=== PATIENT | female | born 1930 | race Caucasian/White ===

== ENCOUNTER 2016-07-07 20:08 | Inpatient (IN) | payer OTHER, BC ==
[~2016-07-07] VITALS: Ht 152.4 cm; Wt 52.8 kg
[~2016-07-07 20:08] MED LIST: ALLEGRA ALLERG180 MG PO; ATENOLOL50 MG PO; BIOTIN 5000MCG PO; CALAN SR,COVER240 MG PO; CALCIUM + VITA1 EAC1 PO; CALCIUM-VITAMI1 EAC1 PO; CARVEDILOL12.5 MG PO; CARVEDILOL6.25 MG PO; CATAPRES0.1 MG PO; CLARITIN,ALAVAR10 MG PO; COLACE100 MG PO; COUMADIN,JANTOVE4 MG PO; COUMADIN,JANTOVE6 MG PO; COUMADIN2 MG PO; COZAAR100 MG PO; Colace PO; Coreg PO; Cozaar PO; ERYTHROMYC1 APPLICAT RIGHT EYE; Ecotrin PO; FLONASE16 G1 BOTH NARES; KEFLEX500 MG PO; LOSARTAN POTASS50 MG PO; LOW DOSE ASPIRI81 M1 PO; MILK OF MAGNES311 MG PO; MIRALAX17 GM PO; Oscal 500 w/Vitamin PO; PREDNISONE20 MG PO; VERAPAMIL ER240 M1 PO; WARFARIN SODIUM2 MG PO; ZYRTEC10 M2 PO
[2016-07-07 21:15] LABS: HEMATOCRIT 34.3 % (36.0-46.0); MCHC 33.5 G/DL (30.0-36.0); MCV 86.6 FL (83-99); RBC DIS.WIDTH-CV 13.6 % (11.8-14.6); RED BLOOD COUNT 3.96 M/uL (3.80-5.20); WHITE BLOOD COUNT 7.1 K/uL (4.1-10.2)
[2016-07-07 21:24] LABS: CHLORIDE 103 mEq/L (99-109); POTASSIUM 4.1 mEq/L (3.7-5.4); SODIUM 136 mEq/L (136-147)
[2016-07-07 21:26] LABS: GLUCOSE 95 mg/dL (70-99)
[2016-07-07 21:28] LABS: ANION GAP 10 MEQ/L (2-14)
[2016-07-07 21:30] LABS: GFR ESTIMATE (CALCULATED) > 59 mL/min/
[2016-07-07 21:31] LABS: UREA NITROGEN (BUN) 15 mg/dL (9-23)
[2016-07-07 21:32] LABS: CREATINE KINASE 19 IU/L (1-294); TOTAL CK 19 IU/L (1-294)
[2016-07-07 21:36] LABS: TROP-I INTERPRETATION NEGATIVE; TROPONIN-I < 0.01 ng/mL (0.0-0.30)
[2016-07-07 21:44] LABS: CK-MB 1.1 ng/mL (0.0-4.9)
[2016-07-07 21:57] LABS: HEMATOLOGY COMMENT 1 SN; MEAN PLAT.VOLUME 10.4 uM^3 (9.5-12.4); PLAT.SUFFICIENCY ADEQUATE; PLATELET COUNT 339 K/uL (156-360)
[2016-07-07 22:56] LABS: ADD MIUA? NO; BILIRUBIN NEGATIVE; BLOOD NEGATIVE; COLOR STRAW ((YELLOW)); GLUCOSE (STRIP) NEGATIVE; KETONES NEGATIVE; LEUKOCYTES NEGATIVE; NITRITE NEGATIVE; PROTEIN (STRIP) NEGATIVE; SPECIFIC GRAVITY 1.009 (1.000-1.030); UCUL ADDED? NO; UROBILINOGEN 0.2 MG/DL (0.2-1.0)
[2016-07-08] MEDS ORDERED: COREG6.25 M1 PO (01:05)
[2016-07-08] MEDS ORDERED: MIRALAX255 GM PO (01:06)
[2016-07-08] MEDS ORDERED: VITAMIN D31000 UNIT PO (01:06)
[2016-07-08 01:24] LABS: PROTHROMBIN TIME 20.7 (9.2-11.2)
[2016-07-08 01:56] VITALS: BP 178/79
[2016-07-08 03:31] VITALS: BP 140/63
[2016-07-08 06:17] LABS: HEMATOCRIT 30.5 % (36.0-46.0); MCH 28.5 PG (29.0-34.0); MCHC 32.5 G/DL (30.0-36.0); MCV 87.9 FL (83-99); MEAN PLAT.VOLUME 10.7 uM^3 (9.5-12.4); PLATELET COUNT 253 K/uL (156-360); RBC DIS.WIDTH-CV 13.8 % (11.8-14.6); RBC DIS.WIDTH-SD 44.2 % (39-53); RED BLOOD COUNT 3.47 M/uL (3.80-5.20); WHITE BLOOD COUNT 5.8 K/uL (4.1-10.2)
[2016-07-08 06:41] LABS: ALKALINE PHOSPHATASE 57 IU/L (3-129); ANION GAP 6 MEQ/L (2-14); CHLORIDE 106 MEQ/L (99-109); GFR ESTIMATE (CALCULATED) > 59 mL/min/; GLUCOSE 90 mg/dL (70-99); POTASSIUM 3.9 MEQ/L (3.7-5.4); SAMPLE HEMOLYSIS CHECK 0; SAMPLE ICTERIC CHECK 0; SAMPLE LIPEMIA CHECK 0; SODIUM 136 MEQ/L (136-147); TOTAL BILIRUBIN 0.3 MG/DL (0.0-1.0); UREA NITROGEN (BUN) 12 mg/dL (9-23)
[2016-07-08 07:08] VITALS: BP 166/61
[2016-07-08 10:48] VITALS: BP 121/58
[2016-07-08] MEDS ORDERED: ASPIR-LOW81 MG PO (13:03)
[2016-07-08 13:40] LABS: HDL CHOLESTEROL 21 MG/DL (Desirable>=50); LDL CHOLESTEROL 85 mg/dL (Desirable<100); NON-HDL CHOLESTEROL 102 mg/dL (Desirable<160); TOTAL CHOLESTEROL 123 mg/dL (Desirable<200); TRIGLYCERIDES 87 MG/DL (Normal: <150)
[2016-07-08 14:22] LABS: Estimated Average Glucose 123 mg/dL (70-123); HEMOGLOBIN A1c (GLYCOHEMOGLOB) 5.9 % HGB (Below 5.7)
[2016-07-08 19:14] VITALS: BP 173/73
[2016-07-09 00:25] VITALS: BP 140/61
[2016-07-09 03:52] VITALS: BP 133/70
[2016-07-09 06:38] LABS: INTER. NORMALIZED RATIO 2.3; PROTHROMBIN TIME 23.6 (9.2-11.2)
[2016-07-09 07:14] VITALS: BP 126/61
== END 2016-07-09 12:50 | disposition home health service (06) | DRG 66 ==
LOC: EME 20:08 → EDOF 07-08 00:05 → 5WEST 07-08 00:05 → EDOF 07-08 00:05 → 5WEST 07-08 01:41
PROVIDERS: Emergency Medicine; Hospitalist; Internal Medicine
DX: I63.9 Cerebral infarction, unspecified (principal); I16.0 Hypertensive urgency; I25.10 Atherosclerotic heart disease of native coronary artery without angina pectoris; E78.5 Hyperlipidemia, unspecified; E86.0 Dehydration; R41.0 Disorientation, unspecified; Z86.711 Personal history of pulmonary embolism; Z79.01 Long term (current) use of anticoagulants
CPT/HCPCS: 70450; 70551; 71020; 80048; 80053; 80061; 81003; 82550; 82553; 83036; 84443; 84484; 85027; 85610; 87086; 93005; 93306; 93880; 99281; 99285; G0378; G8978 GP CJ; G8979 GP CI; G8987 GO CI; G8987 GO CM; J7030

== ENCOUNTER 2016-09-02 11:15 | Inpatient (IN) | payer OTHER, BC ==
[~2016-09-02] VITALS: Ht 165.1 cm; Wt 55.5 kg
[2016-09-02] VITALS (7 sets, daily range): BP systolic 113–132; BP diastolic 55–60
[~2016-09-02 11:15] MED LIST changes: +ASPIR-LOW81 MG PO; +COREG6.25 M1 PO; +MIRALAX255 GM PO; +VITAMIN D31000 UNIT PO
[2016-09-02 12:00] LABS: EOSINOPHIL (%) 0.1 % (0-5); HEMATOCRIT 33.6 % (36.0-46.0); IMMATURE GRANULOCYTE (%) 1.5 % (0.0-0.7); IMMATURE GRANULOCYTE COUNT 0.3 K/uL; INSTRUMENT ABS NEUTROPHIL CT 12.8 K/uL; LYMPHOCYTE COUNT 2.3 K/uL (1.0-2.8); MCH 29.1 PG (29.0-34.0); MCHC 32.1 G/DL (30.0-36.0); MCV 90.6 FL (83-99); MEAN PLAT.VOLUME 10.4 uM^3 (9.5-12.4); MONOCYTE (%) 8.1 % (3-12); MONOCYTE COUNT 1.4 K/uL (0-0.8); NEUTROPHIL (%) 76.3 % (45-76); NEUTROPHIL COUNT 12.8 K/uL (1.8-6.4); PLATELET COUNT 368 K/uL (156-360); RBC DIS.WIDTH-CV 15.8 % (11.8-14.6); RBC DIS.WIDTH-SD 52.1 % (39-53); RED BLOOD COUNT 3.71 M/uL (3.80-5.20); WHITE BLOOD COUNT 16.8 K/uL (4.1-10.2)
[2016-09-02 12:11] LABS: CHLORIDE 99 mEq/L (99-109); SODIUM 132 mEq/L (136-147)
[2016-09-02 12:12] LABS: INTER. NORMALIZED RATIO 1.4; MAGNESIUM 2.2 mg/dL (1.3-2.7); PROTHROMBIN TIME 14.3 (9.2-11.2); PTT 31.2 (25-32)
[2016-09-02 12:13] LABS: GLUCOSE 72 mg/dL (70-99)
[2016-09-02 12:14] LABS: ANION GAP 17 MEQ/L (2-14)
[2016-09-02 12:17] LABS: GFR ESTIMATE (CALCULATED) 24 mL/min/
[2016-09-02 12:18] LABS: UREA NITROGEN (BUN) 43 mg/dL (9-23)
[2016-09-02 12:22] LABS: TROP-I INTERPRETATION NEGATIVE; TROPONIN-I < 0.01 ng/mL (0.0-0.30)
[2016-09-02 13:12] LABS: POTASSIUM 6.6 mEq/L (3.7-5.4)
[2016-09-02] MEDS ORDERED: LO-DOSE ASPIRIN81 M2 PO (14:57)
[2016-09-02] MEDS ORDERED: ELIQUIS2.5 MG PO (14:58)
[2016-09-02 19:59] LABS: METH RESISTANT S AUREUS PCR NEGATIVE (NEGATIVE)
[2016-09-02 20:18] LABS: PROBE CHECK PASS; SPECIMEN PROCESSING CONTROL PASS
[2016-09-02 20:44] LABS: HEMATOCRIT 33.6 % (36.0-46.0); MCH 29.3 PG (29.0-34.0); MCV 88.7 FL (83-99); MEAN PLAT.VOLUME 10.5 uM^3 (9.5-12.4); PLATELET COUNT 342 K/uL (156-360); RBC DIS.WIDTH-CV 15.7 % (11.8-14.6); RBC DIS.WIDTH-SD 50.8 % (39-53); RED BLOOD COUNT 3.79 M/uL (3.80-5.20); WHITE BLOOD COUNT 14.8 K/uL (4.1-10.2)
[2016-09-02 20:58] LABS: ANION GAP 12 MEQ/L (2-14); CHLORIDE 108 MEQ/L (99-109); SAMPLE HEMOLYSIS CHECK 0; SAMPLE ICTERIC CHECK 0; SAMPLE LIPEMIA CHECK 0; SODIUM 138 MEQ/L (136-147); TOTAL BILIRUBIN 1.1 MG/DL (0.0-1.0)
[2016-09-02 21:04] LABS: ALKALINE PHOSPHATASE 139 IU/L (3-129); UREA NITROGEN (BUN) 46 mg/dL (9-23)
[2016-09-02 21:20] LABS: GFR ESTIMATE (CALCULATED) 32 mL/min/; GLUCOSE 101 mg/dL (70-99); POTASSIUM 4.2 MEQ/L (3.7-5.4)
[2016-09-02 22:30] LABS: ADD MIUA? YES; BILIRUBIN NEGATIVE; BLOOD MODERATE; COLOR YELLOW ((YELLOW)); GLUCOSE (STRIP) NEGATIVE; KETONES 5; LEUKOCYTES LARGE; NITRITE NEGATIVE; PROTEIN (STRIP) 100; SPECIFIC GRAVITY 1.014 (1.000-1.030); UROBILINOGEN 0.2 MG/DL (0.2-1.0)
[2016-09-02 22:56] LABS: BACTERIA 2+ /HPF; EPITHELIAL CELLS 3+ /HPF; MUCUS NONE SEEN /LPF; WHITE BLOOD CELLS TNTC /HPF (0-5)
[2016-09-03] VITALS (14 sets, daily range): BP systolic 99–156; BP diastolic 50–75
[2016-09-03 05:02] LABS: HEMATOCRIT 30.1 % (36.0-46.0); MCHC 33.2 G/DL (30.0-36.0); MCV 87.2 FL (83-99); MEAN PLAT.VOLUME 10.7 uM^3 (9.5-12.4); PLATELET COUNT 360 K/uL (156-360); RBC DIS.WIDTH-CV 15.6 % (11.8-14.6); RBC DIS.WIDTH-SD 49.8 % (39-53); RED BLOOD COUNT 3.45 M/uL (3.80-5.20); WHITE BLOOD COUNT 13.2 K/uL (4.1-10.2)
[2016-09-03 05:11] LABS: SODIUM 139 mEq/L (136-147)
[2016-09-03 05:13] LABS: GLUCOSE 74 mg/dL (70-99)
[2016-09-03 05:14] LABS: ANION GAP 14 MEQ/L (2-14)
[2016-09-03 05:17] LABS: GFR ESTIMATE (CALCULATED) 41 mL/min/; UREA NITROGEN (BUN) 44 mg/dL (9-23)
[2016-09-03 05:20] LABS: CHLORIDE 110 mEq/L (99-109)
[2016-09-03 05:54] LABS: INTER. NORMALIZED RATIO 1.3; PROTHROMBIN TIME 13.4 (9.2-11.2)
[2016-09-03 16:59] LABS: C DIFF TOXIN POSITIVE (NEGATIVE)
[2016-09-03 17:14] LABS: PROBE CHECK PASS
[2016-09-04 08:00] VITALS: BP 182/89
[2016-09-04 09:33] LABS: HEMATOCRIT 33.4 % (36.0-46.0); MCH 29.4 PG (29.0-34.0); MCHC 32.9 G/DL (30.0-36.0); MCV 89.3 FL (83-99); MEAN PLAT.VOLUME 10.6 uM^3 (9.5-12.4); PLATELET COUNT 396 K/uL (156-360); RBC DIS.WIDTH-CV 15.9 % (11.8-14.6); RBC DIS.WIDTH-SD 52.3 % (39-53); RED BLOOD COUNT 3.74 M/uL (3.80-5.20); WHITE BLOOD COUNT 10.7 K/uL (4.1-10.2)
[2016-09-04 09:59] LABS: ANION GAP 10 MEQ/L (2-14); CHLORIDE 106 MEQ/L (99-109); GLUCOSE 85 mg/dL (70-99); POTASSIUM 3.2 MEQ/L (3.7-5.4); SAMPLE HEMOLYSIS CHECK 0; SAMPLE ICTERIC CHECK 0; SAMPLE LIPEMIA CHECK 0; SODIUM 138 MEQ/L (136-147); UREA NITROGEN (BUN) 24 mg/dL (9-23)
[2016-09-04 10:07] LABS: GFR ESTIMATE (CALCULATED) > 59 mL/min/
[2016-09-04 12:00] VITALS: BP 192/102
[2016-09-04 16:00] VITALS: BP 177/81
[2016-09-04 17:14] VITALS: BP 176/86
[2016-09-04 20:09] VITALS: BP 170/74
[2016-09-05] VITALS (7 sets, daily range): BP systolic 135–180; BP diastolic 67–82
[2016-09-05 06:53] LABS: HEMATOCRIT 32.2 % (36.0-46.0); MCH 29.4 PG (29.0-34.0); MCHC 33.2 G/DL (30.0-36.0); MCV 88.5 FL (83-99); MEAN PLAT.VOLUME 10.6 uM^3 (9.5-12.4); PLATELET COUNT 411 K/uL (156-360); RBC DIS.WIDTH-CV 15.6 % (11.8-14.6); RBC DIS.WIDTH-SD 51.2 % (39-53); RED BLOOD COUNT 3.64 M/uL (3.80-5.20); WHITE BLOOD COUNT 9.8 K/uL (4.1-10.2)
[2016-09-05 07:21] LABS: ANION GAP 10 MEQ/L (2-14); CHLORIDE 106 MEQ/L (99-109); GFR ESTIMATE (CALCULATED) > 59 mL/min/; GLUCOSE 94 mg/dL (70-99); SAMPLE HEMOLYSIS CHECK 0; SAMPLE ICTERIC CHECK 0; SAMPLE LIPEMIA CHECK 0; SODIUM 137 MEQ/L (136-147); UREA NITROGEN (BUN) 14 mg/dL (9-23)
[2016-09-05 07:30] LABS: POTASSIUM 4.1 MEQ/L (3.7-5.4)
[2016-09-06] VITALS (9 sets, daily range): BP systolic 132–182; BP diastolic 71–101
[2016-09-07 03:36] VITALS: BP 125/70
[2016-09-07 08:00] VITALS: BP 145/74
[2016-09-07 09:02] LABS: ANION GAP 10 MEQ/L (2-14); CHLORIDE 101 MEQ/L (99-109); GFR ESTIMATE (CALCULATED) > 59 mL/min/; GLUCOSE 92 mg/dL (70-99); POTASSIUM 4.1 MEQ/L (3.7-5.4); SAMPLE HEMOLYSIS CHECK 0; SAMPLE ICTERIC CHECK 0; SAMPLE LIPEMIA CHECK 0; SODIUM 137 MEQ/L (136-147); UREA NITROGEN (BUN) 15 mg/dL (9-23)
[2016-09-07 11:23] VITALS: BP 138/70
[2016-09-07] MEDS ORDERED: CARVEDILOL25 MG PO (12:48)
[2016-09-07 15:31] VITALS: BP 140/72
[2016-09-10 19:50] VITALS: BP 136/78
[2016-09-10 20:00] VITALS: BP 147/86
[2016-09-10 21:00] VITALS: BP 160/74
[2016-09-10 22:00] VITALS: BP 161/74
== END 2016-09-07 19:48 | DRG 871 ==
LOC: EME 11:15 → 4WEST 13:48 → EDOF 13:48 → 4WEST 16:01 → 5SOUTH 09-04 17:01
PROVIDERS: Emergency Medicine; Hospitalist; Internal Medicine Critical Care Medicine
DX: A41.4 Sepsis due to anaerobes (principal); J69.0 Pneumonitis due to inhalation of food and vomit; R65.21 Severe sepsis with septic shock; N17.9 Acute kidney failure, unspecified; R18.8 Other ascites; E87.2 Acidosis; J15.9 Unspecified bacterial pneumonia; R00.1 Bradycardia, unspecified; K80.10 Calculus of gallbladder with chronic cholecystitis without obstruction; A04.7 Enterocolitis due to Clostridium difficile; D64.9 Anemia, unspecified; E03.9 Hypothyroidism, unspecified; E78.5 Hyperlipidemia, unspecified; E87.5 Hyperkalemia; E87.6 Hypokalemia; E87.70 Fluid overload, unspecified; I10 Essential (primary) hypertension; I25.10 Atherosclerotic heart disease of native coronary artery without angina pectoris; N30.00 Acute cystitis without hematuria; R09.02 Hypoxemia; Z79.01 Long term (current) use of anticoagulants; Z79.82 Long term (current) use of aspirin; Z82.3 Family history of stroke; Z82.49 Family history of ischemic heart disease and other diseases of the circulatory system; Z83.3 Family history of diabetes mellitus; Z86.711 Personal history of pulmonary embolism; Z86.718 Personal history of other venous thrombosis and embolism; Z86.73 Personal history of transient ischemic attack (TIA), and cerebral infarction without residual deficits; Z87.891 Personal history of nicotine dependence; Z90.49 Acquired absence of other specified parts of digestive tract; Z90.710 Acquired absence of both cervix and uterus
CPT/HCPCS: 71010; 74176; 80048; 80053; 81003; 83605; 83735; 84484; 85025; 85027; 85610; 85730; 86900; 86901; 87040; 87493; 87641; 93005; 94640; 94640 76; 94799; 99202; 99281; 99285; J0692; J1940; J2405; J7030; J7050; J7120; S0030

== ENCOUNTER 2016-09-10 08:05 | Inpatient (IN) | payer OTHER, BC ==
[~2016-09-10] VITALS: Ht 160 cm; Wt 65.5 kg
[~2016-09-10 08:05] MED LIST changes: +CARVEDILOL25 MG PO; +ELIQUIS2.5 MG PO; +LO-DOSE ASPIRIN81 M2 PO
[2016-09-10 08:55] LABS: EOSINOPHIL (%) 0.1 % (0-5); HEMATOCRIT 44.5 % (36.0-46.0); IMMATURE GRANULOCYTE COUNT 0.2 K/uL; INSTRUMENT ABS NEUTROPHIL CT 15.7 K/uL; LYMPHOCYTE COUNT 3.1 K/uL (1.0-2.8); MCH 28.7 PG (29.0-34.0); MCHC 32.8 G/DL (30.0-36.0); MCV 87.6 FL (83-99); MONOCYTE (%) 8.5 % (3-12); MONOCYTE COUNT 1.8 K/uL (0-0.8); NEUTROPHIL (%) 75.2 % (45-76); NEUTROPHIL COUNT 15.7 K/uL (1.8-6.4); PLATELET COUNT 561 K/uL (156-360); RBC DIS.WIDTH-CV 15.8 % (11.8-14.6); RBC DIS.WIDTH-SD 50.7 % (39-53); RED BLOOD COUNT 5.08 M/uL (3.80-5.20); WHITE BLOOD COUNT 20.8 K/uL (4.1-10.2)
[2016-09-10 09:04] LABS: CHLORIDE 100 mEq/L (99-109); POTASSIUM 4.4 mEq/L (3.7-5.4); SODIUM 137 mEq/L (136-147)
[2016-09-10 09:06] LABS: GLUCOSE 112 mg/dL (70-99)
[2016-09-10 09:07] LABS: ANION GAP 15 MEQ/L (2-14)
[2016-09-10 09:08] LABS: TOTAL BILIRUBIN 0.6 mg/dL (0.0-1.0)
[2016-09-10 09:10] LABS: GFR ESTIMATE (CALCULATED) > 59 mL/min/; TROP-I INTERPRETATION NEGATIVE; TROPONIN-I < 0.01 ng/mL (0.0-0.30)
[2016-09-10 09:11] LABS: UREA NITROGEN (BUN) 17 mg/dL (9-23)
[2016-09-10 09:13] LABS: LIPASE 13 U/L (1.0-51.0)
[2016-09-10 09:36] LABS: ALKALINE PHOSPHATASE 121 IU/L (3-129)
[2016-09-10] MEDS ORDERED: TYLENOL REGULA325 MG PO (12:22)
[2016-09-10] MEDS ORDERED: DULCOLAX10 MG PR (12:25)
[2016-09-10] MEDS ORDERED: FLAGYL500 MG PO (12:26)
[2016-09-10] MEDS ORDERED: FLEET ENEMA-AD118 ML PR (12:26)
[2016-09-10] MEDS ORDERED: METOPROLOL TART25 MG PO (12:29)
[2016-09-10] MEDS ORDERED: MILK OF MAGN PO (12:30)
[2016-09-10] MEDS ORDERED: VERAPAMIL HCL240 MG PO (12:31)
[2016-09-10] MEDS ORDERED: PROMETHAZINE HC25 M1 PO (12:33)
[2016-09-10] MEDS ORDERED: MEXSANA330 GM TP (12:35)
[2016-09-10 15:37] LABS: INTER. NORMALIZED RATIO 1.1; PROTHROMBIN TIME 11.6 (9.2-11.2); PTT 27.1 (25-32)
[2016-09-10 20:15] VITALS: BP 143/86
[2016-09-10 21:02] LABS: METH RESISTANT S AUREUS PCR NEGATIVE (NEGATIVE)
[2016-09-10 21:03] LABS: PROBE CHECK PASS; SPECIMEN PROCESSING CONTROL PASS
[2016-09-11] VITALS (20 sets, daily range): BP systolic 163–192; BP diastolic 65–92
[2016-09-11 06:08] LABS: HEMATOCRIT 38.4 % (36.0-46.0); MCH 29.1 PG (29.0-34.0); MCHC 31.8 G/DL (30.0-36.0); MEAN PLAT.VOLUME 10.8 uM^3 (9.5-12.4); PLATELET COUNT 519 K/uL (156-360); RBC DIS.WIDTH-SD 53.6 % (39-53); RED BLOOD COUNT 4.19 M/uL (3.80-5.20); WHITE BLOOD COUNT 20.3 K/uL (4.1-10.2)
[2016-09-11 06:11] LABS: MCV 91.6 FL (83-99)
[2016-09-11 06:37] LABS: ANION GAP 12 MEQ/L (2-14); CHLORIDE 107 MEQ/L (99-109); GFR ESTIMATE (CALCULATED) > 59 mL/min/; GLUCOSE 137 mg/dL (70-99); MAGNESIUM 1.7 mg/dl (1.3-2.7); POTASSIUM 4.6 MEQ/L (3.7-5.4); SAMPLE HEMOLYSIS CHECK 0; SAMPLE ICTERIC CHECK 0; SAMPLE LIPEMIA CHECK 0; SODIUM 140 MEQ/L (136-147); UREA NITROGEN (BUN) 15 mg/dL (9-23)
[2016-09-12] VITALS (10 sets, daily range): BP systolic 136–181; BP diastolic 44–105
[2016-09-12 05:30] LABS: EOSINOPHIL (%) 0.3 % (0-5); HEMATOCRIT 31.6 % (36.0-46.0); IMMATURE GRANULOCYTE (%) 0.7 % (0.0-0.7); IMMATURE GRANULOCYTE COUNT 0.1 K/uL; INSTRUMENT ABS NEUTROPHIL CT 11.4 K/uL; LYMPHOCYTE COUNT 1.6 K/uL (1.0-2.8); MCH 29.5 PG (29.0-34.0); MCHC 32.6 G/DL (30.0-36.0); MCV 90.5 FL (83-99); MEAN PLAT.VOLUME 10.6 uM^3 (9.5-12.4); MONOCYTE (%) 12.3 % (3-12); MONOCYTE COUNT 1.9 K/uL (0-0.8); NEUTROPHIL (%) 76.1 % (45-76); NEUTROPHIL COUNT 11.4 K/uL (1.8-6.4); PLATELET COUNT 435 K/uL (156-360); RBC DIS.WIDTH-CV 16.2 % (11.8-14.6); RBC DIS.WIDTH-SD 53.2 % (39-53); RED BLOOD COUNT 3.49 M/uL (3.80-5.20)
[2016-09-12 06:38] LABS: ANION GAP 7 MEQ/L (2-14); CHLORIDE 113 MEQ/L (99-109); DIRECT BILIRUBIN 0.1 mg/dL (0.0-0.3); GFR ESTIMATE (CALCULATED) > 59 mL/min/; GLUCOSE 149 mg/dL (70-99); MAGNESIUM 1.7 mg/dl (1.3-2.7); POTASSIUM 4.2 MEQ/L (3.7-5.4); SAMPLE HEMOLYSIS CHECK 0; SAMPLE ICTERIC CHECK 0; SAMPLE LIPEMIA CHECK 0; SODIUM 141 MEQ/L (136-147); TOTAL BILIRUBIN 0.4 MG/DL (0.0-1.0); TRIGLYCERIDES 105 MG/DL (Normal: <150); UREA NITROGEN (BUN) 14 mg/dL (9-23)
[2016-09-12 06:40] LABS: ALKALINE PHOSPHATASE 61 IU/L (3-129)
[2016-09-13] VITALS (8 sets, daily range): BP systolic 125–210; BP diastolic 72–98
[2016-09-13 05:46] LABS: HEMATOCRIT 31.2 % (36.0-46.0); MCV 87.9 FL (83-99); MEAN PLAT.VOLUME 10.4 uM^3 (9.5-12.4); PLATELET COUNT 431 K/uL (156-360); RBC DIS.WIDTH-CV 15.9 % (11.8-14.6); RBC DIS.WIDTH-SD 51.5 % (39-53); RED BLOOD COUNT 3.55 M/uL (3.80-5.20); WHITE BLOOD COUNT 15.2 K/uL (4.1-10.2)
[2016-09-13 06:12] LABS: ANION GAP 9 MEQ/L (2-14); CHLORIDE 112 MEQ/L (99-109); GFR ESTIMATE (CALCULATED) > 59 mL/min/; GLUCOSE 132 mg/dL (70-99); SAMPLE HEMOLYSIS CHECK 0; SAMPLE ICTERIC CHECK 0; SAMPLE LIPEMIA CHECK 0; SODIUM 140 MEQ/L (136-147)
[2016-09-13 06:13] LABS: MAGNESIUM 2.1 mg/dl (1.3-2.7); POTASSIUM 3.3 MEQ/L (3.7-5.4); UREA NITROGEN (BUN) 22 mg/dL (9-23)
[2016-09-14 03:16] VITALS: BP 165/87
[2016-09-14 05:50] LABS: HEMATOCRIT 32.6 % (36.0-46.0); MCHC 32.5 G/DL (30.0-36.0); MCV 89.3 FL (83-99); MEAN PLAT.VOLUME 10.8 uM^3 (9.5-12.4); PLATELET COUNT 398 K/uL (156-360); RBC DIS.WIDTH-SD 52.8 % (39-53); RED BLOOD COUNT 3.65 M/uL (3.80-5.20); WHITE BLOOD COUNT 12.4 K/uL (4.1-10.2)
[2016-09-14 07:14] LABS: CHLORIDE 112 mEq/L (99-109); POTASSIUM 4.2 mEq/L (3.7-5.4); SODIUM 142 mEq/L (136-147)
[2016-09-14 07:15] LABS: MAGNESIUM 2.1 mg/dL (1.3-2.7)
[2016-09-14 07:16] LABS: GLUCOSE 106 mg/dL (70-99)
[2016-09-14 07:17] LABS: ANION GAP 9 MEQ/L (2-14)
[2016-09-14 07:20] LABS: GFR ESTIMATE (CALCULATED) > 59 mL/min/
[2016-09-14 07:21] LABS: UREA NITROGEN (BUN) 24 mg/dL (9-23)
[2016-09-14 08:14] VITALS: BP 200/89
[2016-09-14 10:30] VITALS: BP 122/67
[2016-09-14 11:47] VITALS: BP 173/77
[2016-09-14 16:26] VITALS: BP 169/84
[2016-09-14 23:47] VITALS: BP 168/87
[2016-09-15 04:20] VITALS: BP 210/100
[2016-09-15 05:51] LABS: HEMATOCRIT 31.6 % (36.0-46.0); MCH 29.2 PG (29.0-34.0); MCHC 32.6 G/DL (30.0-36.0); MCV 89.5 FL (83-99); MEAN PLAT.VOLUME 10.9 uM^3 (9.5-12.4); PLATELET COUNT 395 K/uL (156-360); RBC DIS.WIDTH-CV 16.2 % (11.8-14.6); RBC DIS.WIDTH-SD 53.2 % (39-53); RED BLOOD COUNT 3.53 M/uL (3.80-5.20)
[2016-09-15 06:27] LABS: ANION GAP 10 MEQ/L (2-14); CHLORIDE 113 MEQ/L (99-109); GFR ESTIMATE (CALCULATED) > 59 mL/min/; GLUCOSE 112 mg/dL (70-99); MAGNESIUM 2.2 mg/dl (1.3-2.7); POTASSIUM 4.3 MEQ/L (3.7-5.4); SAMPLE HEMOLYSIS CHECK 0; SAMPLE ICTERIC CHECK 0; SAMPLE LIPEMIA CHECK 0; SODIUM 144 MEQ/L (136-147); UREA NITROGEN (BUN) 22 mg/dL (9-23)
[2016-09-15 08:10] VITALS: BP 209/98
[2016-09-15 11:30] VITALS: BP 123/63
[2016-09-15 17:10] VITALS: BP 176/88
[2016-09-15 17:33] LABS: POINT-OF-CARE METER ID UU13113781; POINT-OF-CARE USER ID NUTSLF44
[2016-09-15 20:10] VITALS: BP 134/70
[2016-09-16] VITALS (7 sets, daily range): BP systolic 135–141; BP diastolic 67–94
[2016-09-16 05:51] LABS: HEMATOCRIT 31.4 % (36.0-46.0); MCH 28.7 PG (29.0-34.0); MCHC 32.5 G/DL (30.0-36.0); MCV 88.5 FL (83-99); MEAN PLAT.VOLUME 11.2 uM^3 (9.5-12.4); PLATELET COUNT 369 K/uL (156-360); RBC DIS.WIDTH-CV 16.1 % (11.8-14.6); RBC DIS.WIDTH-SD 52.2 % (39-53); RED BLOOD COUNT 3.55 M/uL (3.80-5.20); WHITE BLOOD COUNT 11.8 K/uL (4.1-10.2)
[2016-09-16 06:35] LABS: ALKALINE PHOSPHATASE 74 IU/L (3-129); ANION GAP 10 MEQ/L (2-14); CHLORIDE 110 MEQ/L (99-109); DIRECT BILIRUBIN 0.1 mg/dL (0.0-0.3); GFR ESTIMATE (CALCULATED) > 59 mL/min/; GLUCOSE 97 mg/dL (70-99); POTASSIUM 4.5 MEQ/L (3.7-5.4); PREALBUMIN 11.1 mg/dL (10-40); SAMPLE HEMOLYSIS CHECK 0; SAMPLE ICTERIC CHECK 0; SAMPLE LIPEMIA CHECK 0; SODIUM 142 MEQ/L (136-147); TOTAL BILIRUBIN 0.4 MG/DL (0.0-1.0); TRIGLYCERIDES 113 MG/DL (Normal: <150); UREA NITROGEN (BUN) 20 mg/dL (9-23)
[2016-09-17 03:40] VITALS: BP 159/90
[2016-09-17 05:27] LABS: MCH 29.1 PG (29.0-34.0); MCHC 32.8 G/DL (30.0-36.0); MCV 88.6 FL (83-99); MEAN PLAT.VOLUME 11.2 uM^3 (9.5-12.4); PLATELET COUNT 404 K/uL (156-360); RBC DIS.WIDTH-CV 16.1 % (11.8-14.6); RBC DIS.WIDTH-SD 52.6 % (39-53); RED BLOOD COUNT 3.61 M/uL (3.80-5.20); WHITE BLOOD COUNT 13.6 K/uL (4.1-10.2)
[2016-09-17 05:54] LABS: ANION GAP 9 MEQ/L (2-14); CHLORIDE 108 MEQ/L (99-109); GFR ESTIMATE (CALCULATED) > 59 mL/min/; GLUCOSE 111 mg/dL (70-99); MAGNESIUM 1.9 mg/dl (1.3-2.7); POTASSIUM 4.6 MEQ/L (3.7-5.4); SAMPLE HEMOLYSIS CHECK 2; SAMPLE ICTERIC CHECK 0; SAMPLE LIPEMIA CHECK 0; SODIUM 139 MEQ/L (136-147); UREA NITROGEN (BUN) 17 mg/dL (9-23)
[2016-09-17 07:43] VITALS: BP 210/109
[2016-09-17 09:42] LABS: TYPE OF FLUID PARACENTESIS
[2016-09-17 10:44] LABS: BODY FLUID LDH 52 IU/L; BODY FLUID PROTEIN < 3.0 G/DL
[2016-09-17 10:49] LABS: BODY FLUID EOSINOPHILS 0 % (0-25); BODY FLUID RBC'S < 1000 /MM^3 (0-100); BODY FLUID WBC'S 183 /MM^3 (0-500); MONONUCLEAR WBC'S 89 %; POLYNUCLEAR WBC'S 11 % (0-25)
[2016-09-17 11:46] VITALS: BP 108/55
[2016-09-17 15:59] VITALS: BP 129/88
[2016-09-17 19:00] VITALS: BP 112/60
[2016-09-18 00:23] VITALS: BP 122/58
[2016-09-18 05:09] VITALS: BP 112/53
[2016-09-18 05:59] LABS: HEMATOCRIT 29.4 % (36.0-46.0); MCH 29.2 PG (29.0-34.0); MCHC 32.7 G/DL (30.0-36.0); MCV 89.4 FL (83-99); MEAN PLAT.VOLUME 11.3 uM^3 (9.5-12.4); PLATELET COUNT 296 K/uL (156-360); RBC DIS.WIDTH-CV 15.9 % (11.8-14.6); RBC DIS.WIDTH-SD 52.1 % (39-53); RED BLOOD COUNT 3.29 M/uL (3.80-5.20); WHITE BLOOD COUNT 10.7 K/uL (4.1-10.2)
[2016-09-18 06:24] LABS: ANION GAP 7 MEQ/L (2-14); CHLORIDE 110 MEQ/L (99-109); GFR ESTIMATE (CALCULATED) > 59 mL/min/; GLUCOSE 116 mg/dL (70-99); MAGNESIUM 1.7 mg/dl (1.3-2.7); POTASSIUM 4.5 MEQ/L (3.7-5.4); SAMPLE HEMOLYSIS CHECK 0; SAMPLE ICTERIC CHECK 0; SAMPLE LIPEMIA CHECK 0; SODIUM 138 MEQ/L (136-147); UREA NITROGEN (BUN) 18 mg/dL (9-23)
[2016-09-18 08:45] VITALS: BP 110/54
[2016-09-18] MEDS ORDERED: DUONEB 2.5-0.5 M3 ML AEROSOL (12:14)
[2016-09-18 15:56] VITALS: BP 120/64
[2016-09-18 20:30] VITALS: BP 122/64
[2016-09-18 23:50] VITALS: BP 158/72
[2016-09-19 04:50] VITALS: BP 140/76
[2016-09-19 05:31] LABS: HEMATOCRIT 30.3 % (36.0-46.0); MCHC 33.3 G/DL (30.0-36.0); MCV 87.1 FL (83-99); MEAN PLAT.VOLUME 11.2 uM^3 (9.5-12.4); PLATELET COUNT 313 K/uL (156-360); RBC DIS.WIDTH-CV 15.9 % (11.8-14.6); RBC DIS.WIDTH-SD 50.8 % (39-53); RED BLOOD COUNT 3.48 M/uL (3.80-5.20); WHITE BLOOD COUNT 9.8 K/uL (4.1-10.2)
[2016-09-19 06:01] LABS: ANION GAP 8 MEQ/L (2-14); CHLORIDE 108 MEQ/L (99-109); GFR ESTIMATE (CALCULATED) > 59 mL/min/; GLUCOSE 107 mg/dL (70-99); MAGNESIUM 1.6 mg/dl (1.3-2.7); POTASSIUM 4.2 MEQ/L (3.7-5.4); SAMPLE HEMOLYSIS CHECK 0; SAMPLE ICTERIC CHECK 0; SAMPLE LIPEMIA CHECK 0; SODIUM 136 MEQ/L (136-147); UREA NITROGEN (BUN) 13 mg/dL (9-23)
[2016-09-19 11:02] VITALS: BP 130/65
[2016-09-19 12:27] VITALS: BP 135/89
[2016-09-19 15:30] VITALS: BP 150/96
== END 2016-09-19 17:07 | DRG 335 ==
LOC: EME 08:05 → 4WEST 13:46 → 4EAST 13:46 → EDOF 13:46 → 4WEST 19:38 → 4EAST 09-12 16:21
PROVIDERS: Emergency Medicine; Family Medicine; Internal Medicine Pulmonary Disease; Surgery
DX: K56.5 Intestinal adhesions [bands] with obstruction (postinfection) (principal); K46.0 Unspecified abdominal hernia with obstruction, without gangrene; K80.10 Calculus of gallbladder with chronic cholecystitis without obstruction; A04.7 Enterocolitis due to Clostridium difficile; E43 Unspecified severe protein-calorie malnutrition; J18.9 Pneumonia, unspecified organism; J90 Pleural effusion, not elsewhere classified; E86.0 Dehydration; E87.6 Hypokalemia; R09.02 Hypoxemia; M79.651 Pain in right thigh; I48.91 Unspecified atrial fibrillation; E78.5 Hyperlipidemia, unspecified; I10 Essential (primary) hypertension; I25.10 Atherosclerotic heart disease of native coronary artery without angina pectoris; R54 Age-related physical debility; Z79.82 Long term (current) use of aspirin; Z79.01 Long term (current) use of anticoagulants; Z86.711 Personal history of pulmonary embolism; Z86.718 Personal history of other venous thrombosis and embolism; Z86.73 Personal history of transient ischemic attack (TIA), and cerebral infarction without residual deficits; Z87.891 Personal history of nicotine dependence; Z88.0 Allergy status to penicillin; Z82.3 Family history of stroke; Z82.49 Family history of ischemic heart disease and other diseases of the circulatory system; Z83.3 Family history of diabetes mellitus
CPT/HCPCS: 70450; 71010; 71020; 71275; 74177; 76937; 80048; 80053; 80076; 81003; 82945; 82948; 83615 91; 83690; 83735; 84100; 84134; 84157; 84478; 84484; 84540; 84630 90; 85025; 85027; 85610; 85730; 87070; 87075; 87086; 87116; 87205; 87206; 87641; 88304; 89051; 93005; 93971; 94002; 94640; 94640 76; 94760; 94799; 97530 GO; 97530 GP; 99202; 99281; 99285; J0330; J0360; J0610; J0696; J1100; J1170; J2060; J2270; J2405; J2710; J2765; J3010; J3480; J7030; J7050; P9045; S0030

== ENCOUNTER 2016-09-28 06:07 | Inpatient (IN) | payer OTHER, BC ==
[~2016-09-28] VITALS: Ht 162.6 cm; Wt 55.5 kg
[~2016-09-28 06:07] MED LIST changes: +DULCOLAX10 MG PR; +DUONEB 2.5-0.5 M3 ML AEROSOL; +FLAGYL500 MG PO; +FLEET ENEMA-AD118 ML PR; +METOPROLOL TART25 MG PO; +MEXSANA330 GM TP; +MILK OF MAGN PO; +PROMETHAZINE HC25 M1 PO; +TYLENOL REGULA325 MG PO; +VERAPAMIL HCL240 MG PO
[2016-09-28 07:24] LABS: ADD MIUA? YES; BILIRUBIN NEGATIVE; BLOOD SMALL; COLOR YELLOW ((YELLOW)); GLUCOSE (STRIP) NEGATIVE; KETONES NEGATIVE; LEUKOCYTES MODERATE; NITRITE NEGATIVE; PH, URINE 5.5 (5-8); PROTEIN (STRIP) 30; UROBILINOGEN 0.2 MG/DL (0.2-1.0)
[2016-09-28 07:39] LABS: RED BLOOD CELLS 0-5 /HPF (0-5); WHITE BLOOD CELLS TNTC /HPF (0-5)
[2016-09-28 07:40] LABS: BACTERIA 1+ /HPF; EPITHELIAL CELLS RARE /HPF; MUCUS NONE SEEN /LPF; UCUL ADDED? YES
[2016-09-28 07:45] LABS: HEMATOCRIT 32.7 % (36.0-46.0); MCH 28.2 PG (29.0-34.0); MCHC 32.7 G/DL (30.0-36.0); MCV 86.3 FL (83-99); MEAN PLAT.VOLUME 10.2 uM^3 (9.5-12.4); PLATELET COUNT 516 K/uL (156-360); RBC DIS.WIDTH-CV 15.2 % (11.8-14.6); RBC DIS.WIDTH-SD 48.2 % (39-53); RED BLOOD COUNT 3.79 M/uL (3.80-5.20); WHITE BLOOD COUNT 10.7 K/uL (4.1-10.2)
[2016-09-28 08:11] LABS: ANION GAP 8 MEQ/L (2-14); CHLORIDE 100 MEQ/L (99-109); POTASSIUM 4.1 MEQ/L (3.7-5.4); SAMPLE HEMOLYSIS CHECK 0; SAMPLE ICTERIC CHECK 0; SAMPLE LIPEMIA CHECK 0; SODIUM 131 MEQ/L (136-147)
[2016-09-28 08:17] LABS: GFR ESTIMATE (CALCULATED) > 59 mL/min/; GLUCOSE 107 mg/dL (70-99); UREA NITROGEN (BUN) 14 mg/dL (9-23)
[2016-09-28 08:20] LABS: TROP-I INTERPRETATION NEGATIVE; TROPONIN-I 0.04 ng/mL (0.0-0.30)
[2016-09-28] MEDS ORDERED: ATIVAN0.5 MG PO ×2 (09:23→16:58)
[2016-09-28 16:49] VITALS: BP 188/82
[2016-09-28] MEDS ORDERED: ATROVENT 00.5 MG/2.5 IH (16:51)
[2016-09-28] MEDS ORDERED: ELIQUIS2.5 MG PO (16:52)
[2016-09-28] MEDS ORDERED: COREG25 M1 PO (16:52)
[2016-09-28] MEDS ORDERED: VITAMIN D31000 UNIT PO (16:52)
[2016-09-28] MEDS ORDERED: LASIX20 MG PO (16:53)
[2016-09-28] MEDS ORDERED: TYLENOL REGULA325 MG PO (16:55)
[2016-09-28] MEDS ORDERED: DULCOLAX10 MG PR (16:56)
[2016-09-28] MEDS ORDERED: LASIX40 MG PO (17:00)
[2016-09-28] MEDS ORDERED: LEVAQUIN250 MG PO (17:01)
[2016-09-28] MEDS ORDERED: VERAPAMIL HCL240 MG PO (17:02)
[2016-09-28] MEDS ORDERED: MILK OF MAGN PO (17:04)
[2016-09-28 18:16] VITALS: BP 138/73
[2016-09-28 20:33] VITALS: BP 156/83
[2016-09-28 23:29] VITALS: BP 147/74
[2016-09-29 05:12] VITALS: BP 145/66
[2016-09-29 07:21] LABS: ANION GAP 10 MEQ/L (2-14); CHLORIDE 100 MEQ/L (99-109); GFR ESTIMATE (CALCULATED) > 59 mL/min/; GLUCOSE 88 mg/dL (70-99); POTASSIUM 3.6 MEQ/L (3.7-5.4); SAMPLE HEMOLYSIS CHECK 0; SAMPLE ICTERIC CHECK 0; SAMPLE LIPEMIA CHECK 0; SODIUM 137 MEQ/L (136-147); UREA NITROGEN (BUN) 12 mg/dL (9-23)
[2016-09-29 08:23] VITALS: BP 154/68
[2016-09-29 12:08] VITALS: BP 137/63
[2016-09-29 15:54] VITALS: BP 110/53
[2016-09-29 18:56] VITALS: BP 123/60
[2016-09-29 23:33] VITALS: BP 117/58
[2016-09-30 00:52] LABS: TROP-I INTERPRETATION NEGATIVE; TROPONIN-I 0.02 ng/mL (0.0-0.30)
[2016-09-30 04:26] VITALS: BP 134/64
[2016-09-30 07:09] LABS: MCHC 32.9 G/DL (30.0-36.0); MCV 85.1 FL (83-99); MEAN PLAT.VOLUME 10.5 uM^3 (9.5-12.4); PLATELET COUNT 376 K/uL (156-360); RBC DIS.WIDTH-SD 46.7 % (39-53); RED BLOOD COUNT 3.29 M/uL (3.80-5.20); WHITE BLOOD COUNT 7.2 K/uL (4.1-10.2)
[2016-09-30 07:27] LABS: ANION GAP 10 MEQ/L (2-14); CHLORIDE 97 MEQ/L (99-109); GFR ESTIMATE (CALCULATED) > 59 mL/min/; GLUCOSE 84 mg/dL (70-99); SAMPLE HEMOLYSIS CHECK 0; SAMPLE ICTERIC CHECK 0; SAMPLE LIPEMIA CHECK 0; SODIUM 137 MEQ/L (136-147); UREA NITROGEN (BUN) 12 mg/dL (9-23)
[2016-09-30 07:34] VITALS: BP 170/72
[2016-09-30 07:41] LABS: TROP-I INTERPRETATION NEGATIVE; TROPONIN-I 0.02 ng/mL (0.0-0.30)
[2016-09-30 15:50] VITALS: BP 135/61
[2016-09-30 16:29] LABS: TROP-I INTERPRETATION NEGATIVE; TROPONIN-I 0.02 ng/mL (0.0-0.30)
[2016-09-30 20:51] VITALS: BP 138/63
[2016-09-30 23:47] VITALS: BP 149/68
[2016-10-01 00:59] LABS: TROP-I INTERPRETATION NEGATIVE; TROPONIN-I < 0.01 ng/mL (0.0-0.30)
[2016-10-01 04:38] VITALS: BP 135/64
[2016-10-01 07:15] VITALS: BP 144/64
[2016-10-01 07:38] LABS: HEMATOCRIT 30.9 % (36.0-46.0); MCH 27.9 PG (29.0-34.0); MCHC 32.7 G/DL (30.0-36.0); MCV 85.4 FL (83-99); MEAN PLAT.VOLUME 10.2 uM^3 (9.5-12.4); PLATELET COUNT 330 K/uL (156-360); RBC DIS.WIDTH-CV 14.9 % (11.8-14.6); RBC DIS.WIDTH-SD 46.8 % (39-53); RED BLOOD COUNT 3.62 M/uL (3.80-5.20); WHITE BLOOD COUNT 10.1 K/uL (4.1-10.2)
[2016-10-01 08:04] LABS: ALKALINE PHOSPHATASE 78 IU/L (3-129); ANION GAP 9 MEQ/L (2-14); CHLORIDE 94 MEQ/L (99-109); GFR ESTIMATE (CALCULATED) > 59 mL/min/; GLUCOSE 98 mg/dL (70-99); SAMPLE HEMOLYSIS CHECK 0; SAMPLE ICTERIC CHECK 0; SAMPLE LIPEMIA CHECK 0; SODIUM 138 MEQ/L (136-147); TOTAL BILIRUBIN 0.4 MG/DL (0.0-1.0); UREA NITROGEN (BUN) 13 mg/dL (9-23)
[2016-10-01 08:08] LABS: TROP-I INTERPRETATION NEGATIVE; TROPONIN-I 0.01 ng/mL (0.0-0.30)
[2016-10-01 12:37] VITALS: BP 133/61
[2016-10-01 15:59] VITALS: BP 125/61
[2016-10-01 16:27] LABS: TROP-I INTERPRETATION NEGATIVE; TROPONIN-I 0.02 ng/mL (0.0-0.30)
[2016-10-01 19:38] VITALS: BP 129/64
[2016-10-02] VITALS (7 sets, daily range): BP systolic 93–145; BP diastolic 51–65
[2016-10-02 01:33] LABS: TROP-I INTERPRETATION NEGATIVE; TROPONIN-I 0.01 ng/mL (0.0-0.30)
[2016-10-02 08:25] LABS: CHLORIDE 95 mEq/L (99-109); POTASSIUM 3.5 mEq/L (3.7-5.4); SODIUM 137 mEq/L (136-147)
[2016-10-02 08:26] LABS: GLUCOSE 96 mg/dL (70-99)
[2016-10-02 08:28] LABS: ANION GAP 12 MEQ/L (2-14)
[2016-10-02 08:30] LABS: GFR ESTIMATE (CALCULATED) > 59 mL/min/
[2016-10-02 08:31] LABS: UREA NITROGEN (BUN) 17 mg/dL (9-23)
[2016-10-02 08:50] LABS: TROP-I INTERPRETATION NEGATIVE; TROPONIN-I 0.02 ng/mL (0.0-0.30)
[2016-10-02 17:31] LABS: TROP-I INTERPRETATION NEGATIVE; TROPONIN-I 0.01 ng/mL (0.0-0.30)
[2016-10-03] VITALS (13 sets, daily range): BP systolic 71–133; BP diastolic 41–63
[2016-10-03 11:57] LABS: ANION GAP 10 MEQ/L (2-14); CHLORIDE 93 MEQ/L (99-109); GFR ESTIMATE (CALCULATED) > 59 mL/min/; GLUCOSE 144 mg/dL (70-99); POTASSIUM 4.2 MEQ/L (3.7-5.4); SAMPLE HEMOLYSIS CHECK 0; SAMPLE ICTERIC CHECK 0; SAMPLE LIPEMIA CHECK 0; SODIUM 134 MEQ/L (136-147); UREA NITROGEN (BUN) 23 mg/dL (9-23)
[2016-10-03 13:05] LABS: TROP-I INTERPRETATION NEGATIVE; TROPONIN-I 0.03 ng/mL (0.0-0.30)
[2016-10-03 22:18] LABS: TROP-I INTERPRETATION NEGATIVE; TROPONIN-I 0.02 ng/mL (0.0-0.30)
[2016-10-04 03:41] VITALS: BP 94/49
[2016-10-04 04:43] LABS: TROP-I INTERPRETATION NEGATIVE; TROPONIN-I < 0.01 ng/mL (0.0-0.30)
[2016-10-04 07:20] VITALS: BP 108/55
[2016-10-04 12:07] VITALS: BP 121/59
[2016-10-04 15:11] VITALS: BP 135/63
[2016-10-04 20:03] VITALS: BP 129/58
[2016-10-05] VITALS: BP 138/67
[2016-10-05 04:01] VITALS: BP 127/58
[2016-10-05 07:30] VITALS: BP 138/63
[2016-10-05 15:35] VITALS: BP 141/76
[2016-10-05 19:30] VITALS: BP 149/76
[2016-10-05 23:54] VITALS: BP 139/76
[2016-10-06 03:54] VITALS: BP 162/75
[2016-10-06 06:41] LABS: ANION GAP 6 MEQ/L (2-14); CHLORIDE 100 MEQ/L (99-109); GFR ESTIMATE (CALCULATED) > 59 mL/min/; GLUCOSE 90 mg/dL (70-99); SAMPLE HEMOLYSIS CHECK 0; SAMPLE ICTERIC CHECK 0; SAMPLE LIPEMIA CHECK 0; SODIUM 133 MEQ/L (136-147); UREA NITROGEN (BUN) 28 mg/dL (9-23)
[2016-10-06 07:10] VITALS: BP 154/70
[2016-10-06 11:45] VITALS: BP 180/83
[2016-10-06 13:19] VITALS: BP 178/82
[2016-10-06 14:12] LABS: EOSINOPHIL (%) 1.2 % (0-5); EOSINOPHIL COUNT 0.1 K/uL (0-0.3); HEMATOCRIT 28.1 % (36.0-46.0); IMMATURE GRANULOCYTE (%) 0.7 % (0.0-0.7); INSTRUMENT ABS NEUTROPHIL CT 3.7 K/uL; LYMPHOCYTE COUNT 1.3 K/uL (1.0-2.8); MCHC 33.1 G/DL (30.0-36.0); MCV 87.5 FL (83-99); MEAN PLAT.VOLUME 12.1 uM^3 (9.5-12.4); MONOCYTE (%) 12.2 % (3-12); MONOCYTE COUNT 0.7 K/uL (0-0.8); NEUTROPHIL (%) 63.5 % (45-76); NEUTROPHIL COUNT 3.7 K/uL (1.8-6.4); PLATELET COUNT 300 K/uL (156-360); RBC DIS.WIDTH-SD 48.2 % (39-53); RED BLOOD COUNT 3.21 M/uL (3.80-5.20); WHITE BLOOD COUNT 5.8 K/uL (4.1-10.2)
[2016-10-06 15:30] VITALS: BP 170/66
[2016-10-06 20:11] VITALS: BP 170/74
[2016-10-07 00:24] VITALS: BP 186/82
[2016-10-07 03:40] VITALS: BP 145/67
[2016-10-07 07:00] VITALS: BP 177/80
[2016-10-07 16:14] VITALS: BP 189/88
[2016-10-07 23:28] VITALS: BP 127/71
[2016-10-08 07:26] LABS: ANION GAP 8 MEQ/L (2-14); CHLORIDE 101 MEQ/L (99-109); GFR ESTIMATE (CALCULATED) > 59 mL/min/; GLUCOSE 81 mg/dL (70-99); POTASSIUM 4.4 MEQ/L (3.7-5.4); SAMPLE HEMOLYSIS CHECK 0; SAMPLE ICTERIC CHECK 0; SAMPLE LIPEMIA CHECK 0; SODIUM 136 MEQ/L (136-147); UREA NITROGEN (BUN) 17 mg/dL (9-23)
[2016-10-08 08:09] VITALS: BP 131/72
[2016-10-08] MEDS ORDERED: LEVAQUIN750 MG PO (12:31)
[2016-10-08 15:52] VITALS: BP 145/80
[2016-10-08 17:45] VITALS: BP 181/90
[2016-10-08 19:38] VITALS: BP 135/65
== END 2016-10-08 19:50 | DRG 190 ==
LOC: EME 06:07 → 2EAST 09:10 → EDOF 09:10 → 2EAST 16:36
PROVIDERS: Emergency Medicine; Family Medicine; Internal Medicine; Internal Medicine Pulmonary Disease; Nurse Practitioner Family
PROC: 02HV33Z Insertion of Infusion Device into Superior Vena Cava, Percutaneous Approach (ICD-10-PCS; principal; 2016-09-28)
DX: J44.0 Chronic obstructive pulmonary disease with (acute) lower respiratory infection (principal); J18.9 Pneumonia, unspecified organism; G93.41 Metabolic encephalopathy; J96.21 Acute and chronic respiratory failure with hypoxia; E43 Unspecified severe protein-calorie malnutrition; I50.30 Unspecified diastolic (congestive) heart failure; I13.0 Hypertensive heart and chronic kidney disease with heart failure and stage 1 through stage 4 chronic kidney disease, or unspecified chronic kidney disease; E86.0 Dehydration; I48.91 Unspecified atrial fibrillation; E11.22 Type 2 diabetes mellitus with diabetic chronic kidney disease; I27.2 Other secondary pulmonary hypertension; E87.1 Hypo-osmolality and hyponatremia; F71 Moderate intellectual disabilities; N18.9 Chronic kidney disease, unspecified; F03.90 Unspecified dementia, unspecified severity, without behavioral disturbance, psychotic disturbance, mood disturbance, and anxiety; Z51.5 Encounter for palliative care; E78.5 Hyperlipidemia, unspecified; J98.11 Atelectasis; I44.1 Atrioventricular block, second degree; Z66 Do not resuscitate; I25.10 Atherosclerotic heart disease of native coronary artery without angina pectoris; K21.9 Gastro-esophageal reflux disease without esophagitis; N39.0 Urinary tract infection, site not specified; E87.6 Hypokalemia; E03.9 Hypothyroidism, unspecified; B37.49 Other urogenital candidiasis; Z86.711 Personal history of pulmonary embolism; Z79.82 Long term (current) use of aspirin; M19.90 Unspecified osteoarthritis, unspecified site; Z86.718 Personal history of other venous thrombosis and embolism; Z86.73 Personal history of transient ischemic attack (TIA), and cerebral infarction without residual deficits; M81.0 Age-related osteoporosis without current pathological fracture; Z87.01 Personal history of pneumonia (recurrent); I95.9 Hypotension, unspecified
CPT/HCPCS: 70450; 71010; 71020; 74230; 80048; 80048 91; 80053; 80202; 81003; 82272; 82948; 83605; 83880; 84484; 85025; 85027; 87040; 87077; 87086; 87106; 87186; 92610 GN; 92611 GN; 93005; 94640; 94640 76; 94760; 94799; 97530 GO; 97530 GP; 99202; 99281; 99285; J0360; J0692; J1940; J1956; J3370; J7030; J7050